=== PATIENT | male | born 1975 | race Caucasian/White ===

== ENCOUNTER 2023-02-19 06:45 | Inpatient (IN) ==
--- NOTE | 2023-02-05 13:17 | Anesthesiology Consultation ---
Date of Service February 05, 2023 Assessment & Plan (1) Encounter for pre-operative examination: COVID screening: Per assessment on 02/05: No known COVID-19 positive contacts or current COVID-19 related symptoms. Travel screen negative. At surgeon discretion if preop Covid testing being done. Chart Review Chart Review: Acceptable Risk for Surgery and Patient seen in Pre Admission Testing Teaching & Discussion Pre-Anesthesia Teaching/Discussion Notes: Instructed NPO after midnight before surgery,except medications with 15 cc of water. Medication instructions provided according to the PAT guidelines. History Surgery Operation Date: 02/19/23 07:45 Proposed Procedures p L4-L5 Decompression and Fusion, Spinal Cord Monitoring - Alexei Baumann, Height/Weight Height: 5 ft 11 in Weight: 100.6 kg Allergies Allergy/AdvReac Type Severity Reaction Status Date / Time No Known Allergies Allergy Verified 01/28/23 10:07 Medications Home Medications Medication Instructions Recorded Confirmed Last Taken No Known Home Medications 01/28/23 01/28/23 Unknown Past Medical History Medical History Chronic back pain Exercise / Class Metabolic Activity III < 4 Walking/Shop/Light housework (Decreased activity in setting of worsening back pain) Past Surgical History Surgical History History of surgery left middle finger History of tonsillectomy Past Anesthesia History No Hx of Anesthesia Complications and No Family Hx of Anesthesia Complications History of PONV No Hx of PONV and Hx of Motion Sickness (Situational) Social History Smoking Status: Light tobacco smoker Do You Dip or Chew Tobacco: Yes (1 can every 3 days- Advised) Smoking End Date: Quit regular use 3 years ago, rare current use Hx Alcohol Use: Yes Alcohol type: beer alcohol intake frequency: a few times a week Hx Substance Use: No substance use type: does not use Review of Systems Patient denies chest pain, shortness of breath, fever, chills, cough, wheezing, palpitations. Physical Exam Vital Signs VITALS BP 144/95 P 80 TEMP 98.6 SP02 97%RA RESP 16 PHYSICAL Full cervical extension range of motion. Full TMJ range of motion. TMD 3.5 finger breaths Mallampati Score 3 Dentition: upper front right broken, several missing Lungs: clear throughout to auscultation Cardiac: regular rate and rhythm, no murmurs noted Spine: normal Carotid arteries: negative bruit Extremities: no LE edema Lab Results Anesthesia Preop Results Results Anesthesia Widget: WBC 9.96 K/ul (4.8-10.8) 02/05/23 Hgb 17.3 g/dl (14.0-18.0) 02/05/23 Hct 47.8 % (42.0-52.0) 02/05/23 Plt 165 K/uL (130-400) 02/05/23 Na 135 mmol/L (136-145) L 02/05/23 K 3.8 mmol/L (3.5-5.1) 02/05/23 Cl 101 mmol/L (98-107) 02/05/23 CO2 25 mmol/L (21-32) 02/05/23 BUN 16 mg/dl (6-23) 02/05/23 Creat 1.06 mg/dl (0.6-1.4) 02/05/23 Glucose Level 102 mg/dl (70-99(Fasting)) H 02/05/23 PT 11.4 Seconds (9.0-12.0) 02/05/23 PTT 27.7 Seconds (21.0-31.0) 02/05/23 INR 1.0 (0.9-1.1) 02/05/23 Urine Color Dark Yellow 02/05/23 Urine Appearance Clear (Clear) 02/05/23 Urine pH 5.0 (4.5-7.5) 02/05/23 Urine Specific [place] 1.029 (1.000-1.030) 02/05/23 Urine Protein 1+ (Negative) H 02/05/23 Urine Glucose (UA) Negative (Negative) 02/05/23 Urine Ketones Trace (Negative) H 02/05/23 Urine Blood Negative (Negative) 02/05/23 Urine Nitrite Negative (Negative) 02/05/23 Urine Bilirubin Negative (Negative) 02/05/23 Urine Urobilinogen Negative (Negative) 02/05/23 Urine Leukocyte Esterase Trace (Negative) H 02/05/23 Urine WBC (Auto) 10-30 /hpf (0-5) H 02/05/23 Urine RBC (Auto) 0-4 /hpf (0-4) 02/05/23 Urine Hyaline Casts (Auto) 5-10 /lpf (0-5) H 02/05/23 Urine Epithelial Cells (Auto) 10-20 /lpf (0-5) H 02/05/23 Urine Bacteria (Auto) Negative (Negative) 02/05/23 Blood Type O Positive 02/05/23 Antibody Screen NEGATIVE 02/05/23 Testing Electrocardiogram Date: 02/05/23 NSR at 78bpm. Chest X-Ray Date: 02/05/23 FINDINGS: No lines and tubes are seen. The cardiomediastinal silhouette is normal. The lungs are clear. No evidence of pleural effusion or pneumothorax. IMPRESSION: No acute chest disease. COVID-19 Risk Screen Screening Information COVID-19 Screen Date: 02/05/23 Exposure 21 Days Family/Household +COVID Last 21 Days: No Exposure 10 Days Any COVID Exposure Last 10 Days: No Symptoms Last 10 Days Experienced COVID Sx Last 10 Days: No + COVID 0-90 Days COVID + in Last 0-90 Days: No
[~2023-02-19 06:45] MED LIST: ACETAMINOPHEN 500 MG TAB PO SCH; CeleBREX 200 MG CAP PO SCH; GABAPENTIN 900 MG DOSE PO SCH; LR 15ML/HR IV SCH; ceFAZolin 2000MG 2,000 MG/15 ML SYR IV SCH
--- NOTE | 2023-02-19 08:48 | History & Physical Bridge Note ---
Date of Service February 19, 2023 History & Physical Bridge Note I have examined the patient, reviewed the History & Physical and in the interval since the performance of the History & Physical I have noted the following changes of clinical significance: no changes noted
--- NOTE | 2023-02-19 08:49 | History & Physical Report ---
Date of Service February 19, 2023 Assessment & Plan (1) Neurogenic claudication due to lumbar spinal stenosis: Plan: L4-L5 decompression and fusion History of Present Illness Chief Complaint: Back and leg pain Primary Care Provider: Valerio Jacobsen This is a 47-year-old male presents with chronic persistent back and leg pain after failing course of nonoperative care is here for surgical invention. Allergies Allergy/AdvReac Type Severity Reaction Status Date / Time No Known Allergies Allergy Verified 02/19/23 07:56 Home Medications Medication Instructions Recorded Confirmed Type No Known Home Medications 01/28/23 02/19/23 History Past Med/Surg History Medical History Chronic back pain Surgical History History of surgery left middle finger History of tonsillectomy Social History Smoking Status: Light tobacco smoker Smoking End Date: Quit regular use 3 years ago, rare current use; Second Hand Exposure: Yes; Do You Dip or Chew Tobacco: Yes (1 can every 3 days- Advised); Tobacco Cessation Education Requested by Patient: No Hx Alcohol Use: Yes Alcohol type: beer Hx Substance Use: No Preferred Language: Mongolian Communication Ability: Effective Lift Truck Operator Required: No Beliefs That Will Affect Care: None Current Living Situation: Significant Other Feels Safe at Home: Yes Safety Concerns: Feels Safe At This Time Assistive Devices: Crutches and Glasses Physical Exam Physical Exam: Patient is alert and oriented Heart regular rhythm Lungs clear Results & Data Results & Data Vital Signs (Past 12 Hours) Vital Signs Temp Pulse Resp BP Pulse Ox O2 Del Method 02/19/23 07:58 36.7 C 70 18 144/95 H 94 Room Air
[2023-02-19] MEDS ORDERED: MIDAZOLAM HCL 1 MG/ML 2ML VIAL ONE (08:50)
[2023-02-19] MEDS ORDERED: fentaNYL citrate PF 100 MCG/2 ML VIAL ONE ×2 (08:50→09:52)
[2023-02-19] MEDS ORDERED: ceFAZolin 330 MG/ML 1 GM VIAL ONE (09:11)
[2023-02-19] MEDS ORDERED: BUPIVACAINE/EPINEPHRINE 0.25% 1:200,000 30 ML VIAL ONE (09:11)
[2023-02-19] MEDS ORDERED: DEXAMETHASONE SOD INJ 4 MG/ML VIAL ONE (09:35)
[2023-02-19] MEDS ORDERED: LIDOCAINE 2% 2 ML VIAL/AMP(20MG/ML) INFIL ONE (09:35)
[2023-02-19] MEDS ORDERED: PROPOFOL IV EMULSION 10 MG/ML 20 ML VIAL IV ONE (09:35)
[2023-02-19] MEDS ORDERED: ROCURONIUM BROMIDE 10 MG/ML 5 ML VIAL IV ONE (09:35)
[2023-02-19] MEDS ORDERED: FLOSEAL HEMOSTATIC MATRIX 10ML TOP ONE (09:49)
[2023-02-19] MEDS ORDERED: ONDANSETRON INJ 2 MG/ML 2 ML VIAL ONE (10:38)
[2023-02-19] MEDS ORDERED: GLYCOPYRROLATE 0.2 MG/ML VIAL ONE (10:53)
[2023-02-19] MEDS ORDERED: NEOSTIGMINE METHYLSULFATE 1 MG/ML 10ML VIAL ONE (10:53)
--- NOTE | 2023-02-19 10:59 | Operative Report ---
Post Operative Report Pre & Post Diagnosis Operation Date: 02/19/23 08:55 Pre-Op Diagnosis: Lumbar Region Spondylolisthesis Lumbar spinal stenosis with neurogenic claudication Post-Op Diagnosis: Same I identified the patient and participated in the time-out.: Yes Procedure Operation Date: 02/19/23 08:55 Actual Procedures 1. Lumbar decompression bilateral medial facetectomies and foraminotomies L3-L4 L4-5. #2 posterior spinal fusion L4-5 #3 placed posterior instrumentation L4-5 per #4 interbody fusion L4-5 per #5 placement Spira 15 x 26 mm at L4-5. #6 placement locally harvested morselized autograft in the posterior gutters. #7 placement of I factor combined with the talus in the interbody space and posterior lateral gutters. Surgeon Alexei Baumann, DO Gynecologist Ayden Michelle Estimated Blood Loss 450 Findings See Below The patient is 5 foot 11 weighing over 100 kg with a BMI in excess of 31. Patient's body was did contribute to significant technical difficulty required deepest retractors and longer instruments in order to perform his procedure. This added at least 50% increased to the operative time. Specimens none Indications This is a 47-year-old male presents with above-mentioned diagnosis after failing course of nonoperative care is here for surgical invention. Description of Procedure Patient was met with identified informed consent obtained. Patient was then taken to the operative suite underwent a patient placed in a prone position the [facility] top Gibran frame. All bony promises well-padded eyes inspected to ensure no external pressure placed upon the. This point lumbar spine was prepped and draped in a sterile fashion. Sharp dissection with the assistance of Bovie cautery was performed down to and exposing the lamina transverse processes of L4-5. From caudal cephalad fashion complete laminectomy of L4 was performed partial laminectomy of all 3 including bilateral medial facetectomies and foraminotomies addressing severe spinal stenosis. Pedicle screws were then placed in L4-L5 bilaterally with assistance of fluoroscopy and the properly sized mary placed. By way the transforaminal approach on the right complete discectomy of L4-L5 was performed endplates corrected to subcortical bleeding bone and a 15 x 26 mm Spira cage with I factor tapped in position. The rods were then compressed locked in final position bilaterally. The transverse processes of L4-L5 burred to subcortically bone. I factor amount of the test and locally harvested morselized autograft was placed in the posterior gutters. 15 round SYD drain inserted. The incision was then closed with 1 Vicryl the fascia 2-0 Vicryl subcutaneously and 4 Monocryl for final skin closure. Steri- Strips sterile dressing placed. Patient waken taken to PACU stable condition. Please note spinal cord monitoring was utilized at the procedure no changes noted. Lastly Ayden Michelle was present at the entire surgery and while the patient positioning complex portions of the surgery and final skin closure. I attest to the content of the Intraoperative Record and any orders documented therein. Any exceptions are noted below.
--- NOTE | 2023-02-19 11:25 | Fluoroscopy Report ---
FL lumbar spine 2-3V CLINICAL HISTORY: L4-5 DFI COMPARISON STUDY: None. FLUOROSCOPY TIME: 20 seconds. Ka, r: 19.60 mGy FLUOROSCOPIC IMAGES: 2 FINDINGS: Fluoroscopy was provided during L4-L5 discectomy, posterior decompression and bilateral ped icle screw fusion. Hardware is intact. IMPRESSION: Fluoroscopy provided during L4-L5 discectomy, posterior decompression and bilateral pedi kelly screw fusion. ACT 112: Negative or not required by law. Electronically signed by: Ventura Hernandes M.D. 02/19/2023 11:23 AM
[2023-02-19] MEDS ORDERED: traMADol HCL 50 MG TABLET PO PRN (12:41)
[2023-02-19] MEDS ORDERED: DO NOT ADMINISTER PNEUMOCOCCAL VACCINE PRN (12:41)
[2023-02-19] MEDS ORDERED: ALUMINUM/MAGNESIUM SUSP 30 ML UDC PO PRN (12:41)
[2023-02-19] MEDS ORDERED: oxyCODONE HCL IR 5 MG TAB (IMMEDIATE RELEASE) PO PRN (12:41)
[2023-02-19] MEDS ORDERED: HYDROmorphone INJ 0.5 MG/0.5 ML SYR IV PRN (12:41)
[2023-02-19] MEDS ORDERED: SOD PHOSPHATE/SOD BIPHOSPHATE ENEMA 132 ML BTL PR PRN (12:41)
[2023-02-19] MEDS ORDERED: METOCLOPRAMIDE HCL INJ 5 MG/ML 2 ML VIAL IV PRN (12:41)
[2023-02-19] MEDS ORDERED: ONDANSETRON INJ 2 MG/ML 2 ML VIAL IV PRN (12:41)
[2023-02-19] MEDS ORDERED: LORazepam 2 MG/1 ML VIAL IV PRN (12:41)
[2023-02-19] MEDS ORDERED: hydrOXYzine HCl 25 MG TAB PO PRN (12:41)
[2023-02-19] MEDS ORDERED: FAMOTIDINE 20 MG TAB PO PRN (12:41)
[2023-02-19] MEDS ORDERED: KETOROLAC 30 MG/ML VIAL IV PRN (12:41)
[2023-02-19] MEDS ORDERED: PROMETHAZINE HCL 12.5 MG in SODIUM CHLORIDE 0.9% 50 ML IV PRN (12:41)
[2023-02-19] MEDS ORDERED: ACETAMINOPHEN 1,000 MG/100 ML VIAL IV PRN (12:41)
[2023-02-19] MEDS ORDERED: HYDROmorphone INJ 1 MG/ML SYRINGE IV PRN (12:41)
[2023-02-19] MEDS ORDERED: diphenhydrAMINE Capsule 25 MG CAP PO PRN (12:41)
[2023-02-19] MEDS ORDERED: MAGNESIUM HYDROXIDE SUSP 30 ML UDC PO PRN (12:41)
[2023-02-19] MEDS ORDERED: ONDANSETRON 4 MG OD TAB PO PRN (12:41)
[2023-02-19] MEDS ORDERED: NALOXONE HCL 0.4 MG/1 ML VIAL/CARP IV PRN (12:41)
[2023-02-19] MEDS ORDERED: DO NOT ADMINISTER FLU VACCINE PRN (12:41)
[2023-02-19] MEDS ORDERED: bisacodyL 10 MG SUPP PR PRN (12:41)
[2023-02-19] MEDS ORDERED: LORazepam 0.5 MG TAB PO PRN (12:41)
[2023-02-19] MEDS ORDERED: ACETAMINOPHEN 500 MG TAB PO PRN (12:41)
[2023-02-19] MEDS: LACTATED RINGER'S 1,000 ML IV SCH ×2 (13:54→20:59)
--- NOTE | 2023-02-19 14:18 | Anesthesiology Progress Note ---
Date of Service February 19, 2023 Anesthesia Post Procedure Vital Signs Vital Signs: Temp Pulse Pulse Resp BP Pulse Ox O2 Del Method 02/19/23 14:14 36.7 C 85 16 106/68 94 Room Air 02/19/23 13:28 73 14 127/87 97 Room Air 02/19/23 13:00 36.1 C L 80 16 109/76 96 Nasal Cannula 02/19/23 12:00 75 16 129/89 95 Nasal Cannula 02/19/23 11:45 36.6 C 66 14 137/85 95 Nasal Cannula 02/19/23 11:35 75 12 151/90 H 95 Nasal Cannula 02/19/23 11:25 75 18 150/90 H 95 Nasal Cannula 02/19/23 11:16 36.1 C L 81 17 159/96 H 95 Nasal Cannula 02/19/23 07:58 36.7 C 70 18 144/95 H 94 Room Air O2 Flow Rate 02/19/23 14:14 02/19/23 13:28 2.5 02/19/23 13:00 2.5 02/19/23 12:00 3 02/19/23 11:45 3 02/19/23 11:35 3 02/19/23 11:25 3 02/19/23 11:16 3 02/19/23 07:58 Pain Intensity Lower Back: Pain Intensity: 1 Transfer of Care Handoff Completed per policy Notes Mental Status: alert / awake / arousable and participated in evaluation Patient Amnestic to Procedure: Yes Nausea / Vomiting: adequately controlled Pain: adequately controlled Airway Patency, RR, SpO2: stable & adequate BP & HR: stable & adequate Hydration State: stable & adequate Neuraxial Anesthesia: was administered and sensory block is resolving Anesthetic Complications: no major complications apparent and Pt Satisfied with anesthetic care
[2023-02-19] MEDS: ceFAZolin 2000MG 2,000 MG/15 ML SYR IV SCH (19:26)
[2023-02-19] MEDS: DOCUSATE SODIUM/SENNA 50/8.6MG TAB PO SCH (20:40)
[2023-02-20] MEDS: ceFAZolin 2000MG 2,000 MG/15 ML SYR IV SCH (00:06)
[2023-02-20] MEDS: POLYETHYLENE (MIRALAX) 17 GM PACK PO SCH ×4 (05:47→22:12)
[2023-02-20 05:59] LABS: Basophils # (auto) 0.03 K/uL (0-0.2); Basophils % (auto) 0.2 %; Eosinophils # (auto) 0.01 K/uL (0-0.50); Eosinophils % (auto) 0.1 %; Hematocrit (blood only) 41.4 % (42.0-52.0); Hemoglobin 15.2 g/dl (14.0-18.0); Immature Granulocytes # (auto) 0.13 K/uL (0.01-0.20); Immature Granulocytes % (auto) 0.7 %; Lymphocytes # (auto) 2.34 K/uL (1.2-3.4); Lymphocytes % (auto) 11.9 %; Mean Corpuscular Hemoglobin 33.3 pg (25.0-34.0); Mean Corpuscular Hgb Conc 36.7 g/dL (32.0-36.0); Mean Corpuscular Volume 90.6 fL (80.0-100.0); Mean Platelet Volume 10.2 fL (9.4-12.4); Monocytes % (auto) 5.6 %; Neutrophils # (auto) 16.01 K/uL (1.40-6.50); Neutrophils % (auto) 81.5 %; Platelet Count 162 K/uL (130-400); RDW Standard Deviation 42.6 fL (36.4-46.3); Red Blood Count 4.57 M/uL (4.70-6.10); White Blood Count 19.62 K/ul (4.8-10.8)
[2023-02-20 06:14] LABS: BUN Creatinine Ratio 18.3 (10-20); Calcium 9.1 mg/dl (8.6-10.3); Creatinine Clr Calc Pharmacy 98.1 ml/min; Est GFR (African American) 88.6 ml/min; Est GFR (Non-African American) 76.4 ml/min; Potassium 4.2 mmol/L (3.5-5.1)
--- NOTE | 2023-02-20 08:24 | Orthopedic Progress Note ---
Date of Service February 20, 2023 Assessment & Plan (1) Neurogenic claudication due to lumbar spinal stenosis: Plan: At this time continue physical therapy monitor his SYD output hopefully be able to discharge home tomorrow if the SYD drain decreases appropriately. Admission and Anticipated Discharge Date Admission Date: February 19, 2023 Subjective Back pain controlled leg pain improved Physical Exam Physical Exam: Patient is ambulating the halls. Is constricted testing. Is comfortable. Results & Data Vital Signs (Past 12 Hours) Vital Signs Temp Pulse Resp BP Pulse Ox O2 Del Method 02/20/23 07:44 36.7 C 77 16 148/89 H 96 Room Air 02/20/23 05:00 36.5 C 75 19 124/77 97 Room Air 02/20/23 00:17 36.2 C L 74 18 135/77 93 Room Air Queries Orthopedic Spine Obesity: Yes
[2023-02-20] MEDS: dexAMETHasone 6 MG in SYRINGE 0 ML IV SCH (08:36)
[2023-02-20] MEDS: DOCUSATE SODIUM/SENNA 50/8.6MG TAB PO SCH (20:42)
[2023-02-21] MEDS: POLYETHYLENE (MIRALAX) 17 GM PACK PO SCH ×2 (06:16→11:01)
[2023-02-21] MEDS: dexAMETHasone 6 MG in SYRINGE 0 ML IV SCH (08:10)
--- NOTE | 2023-02-21 10:22 | Discharge Summary ---
Date of Service February 21, 2023 Admission HPI Per Admitting Provider This is a 47-year-old male presents with chronic persistent back and leg pain after failing course of nonoperative care is here for surgical invention. Principal Diagnosis Lumbar spinal stenosis with neurogenic claudication Discharge Data Allergies Allergy/AdvReac Type Severity Reaction Status Date / Time No Known Allergies Allergy Verified 02/19/23 07:56 Procedures Performed Operation Date: 02/19/23 08:55 Actual Procedures p L4-L5 Decompression and Fusion with Interbody, Spinal Cord Monitoring(Not Applicable) - Alexei Baumann DO Ordered Studies 02/19/23 08:55 [place] lumbar spine 2-3V Routine Hospital Course (1) Neurogenic claudication due to lumbar spinal stenosis: Patient went lumbar decompression fusion tolerated this well was taken to orthopedic for postop labor postop day 1 is up and ambulating progress postop day #2. Pain well controlled. Excellent strength testing. SYD drain decreasing appropriately. Subsequently discharged home. Discharge orders and instructions found in chart for further review. Total Time Total Time Spent Total Time Spent (In Minutes): 20 minutes Discharge Plan Discharge Items Patient Disposition: Home - Self-Care Reason For Visit: Lumbar Region Spondylolisthesis Discharge Diagnosis: Lumbar spinal stenosis with spondylolisthesis and Activity: As commented below Non-emergency contact: Primary Care Provider Call non-emergency contact if: you have any medication questions Follow-up/Referrals: Valerio Jacobsen D.O. [Primary Care Provider] - Diet: Regular Addtl Attending Provider Instructions: ACTIVITY RECOMMENDATIONS: SELF CARE INSTRUCTIONS AFTER THORACIC/LUMBAR FUSIONS 1. You may walk to your tolerance. It is good exercise for your legs and back. Expect some back and intermittent leg aches and pains. 2. You may perform "counter-top" level activities (make a sandwich, juan with a project, etc.). 3. No bending or lifting of more than 10 pounds or back twisting of any nature (roll like a log when turning in bed). 4. You may ride in a car for 20-30 minutes at a time. No driving until after your first visit with your doctor. 5. Frequent changes of position and restricting sitting to 30 minutes at a time will help limit the amount of back spasms and stiffness you may experience. 6. You may discontinue the use of ambulatory aids (cane, crutches, etc.) once your strength and confidence allow. 7. You may labor standards director the shower and let water strike your incision when you arrive home at least once daily. Do not take a tub bath, sit in a hot tub or go into a swimming pool until after your first recheck in the office. SPECIAL CARE INSTRUCTIONS: VERY IMPORTANT TO READ AND REVIEW A. Your surgical incision has been closed with a cosmetic suture under the skin that will dissolve in about 6 weeks. In 14 days, you can use a pair of clean scissors and cut the suture that is left outside of the skin at the ends of your incision. 1. The small skin tapes can be removed 7 days after surgery if they have not fallen off by that point. 2. You may keep the wound open to air as much as possible to promote healing after post-op day number 5 unless told otherwise by your doctor. 3. If you think the wound looks like it is becoming infected (redness or worsening drainage) and/or you are experiencing fever, chill or worsening back pain and muscle spasms, contact the office so that we may evaluate you as soon as possible. B. Complications are uncommon, but please contact us if you have any signs or symptoms of: 1. wound infection (fever higher than 102.5 degrees F, redness, separation of wound, drainage, or increasing pain from the incision) 2. blood clots in legs (pain, swelling, redness and warmth in legs) 3. urinary tract infection (fever higher than 102.5 degrees F, burning upon urination or increased frequency of urination) 4. nerve problems (inability to walk on your toes or heels, numbness, loss of bowel or bladder control) 5. any other symptoms that concern you C. Please call the office at if you have any concerns or questions about your operation or recovery. D. No smoking! Smoking drastically decreases the chance of a solid fusion. E. Do not take any anti-inflammatory medications (Indocin, Advil, Motrin, Aspirin, Naprosyn, etc.) as these may inhibit the chance of a solid fusion. Ty lenol is okay to take for pain. MANAGING PAIN AFTER SPINAL SURGERY 1. Narcotic medication is intended for short-term use and will be provided for surgical pain. Surgical pain usually lasts for a period of 4-6 weeks. Narcotic medication includes Percocet, Vicodin, Darvocet, Tylenol #3 or Lortab. 2. Longer-term pain is more appropriately treated with non-narcotic medication such as Tylenol ES. 3. Muscle spasm is not appropriately treated with narcotics. Muscle relaxers such as Soma, Flexeril or Skelaxin can be used along with Tylenol ES. 4. Remember that we all live with some "aches and pains". This is not unusual or uncommon after an injury or as we get older. a. Back pain is expected and may include muscle spasms for 4 to 6 weeks after surgery. The pain should gradually improve. If the pain worsens for no apparent reason, please contact the office. b. Intermittent leg pain may also be experienced and should not be concerned about unless it worsens for no apparent reason. If so, please contact the office. 5. We will provide appropriate medication within the normal guidelines of their prescribed use. We will also be very cautious and aware of potential abuse and extended duration of patients' medication needs. a. Pain medications are for your comfort and to assist with sleep and rest so that the tissue can heal. They are not provided in order to return to normal activity and should not be used through the day. To do so or worsening pain at night can result from ongoing tissue damage and development of tolerance to the prescribed medicine. 6. Please allow 2-3 days to process refills. Prescriptions will not be mailed but must be picked up at the office. FOLLOW UP VISIT: Keep your scheduled follow-up appointment. Any questions, please call the office at . Pending Studies at Discharge: No Stand-Alone Forms: My [facility], Smoking Cessation Medications and DC Order Prescriptions: New tramadol 50 mg tablet 50 mg PO Q6H PRN (Reason: pain, moderate) Qty: 30 0RF oxycodone 5 mg tablet 5 mg PO Q6H PRN (Reason: pain) Qty: 30 0RF Discharge Orders: Discharge Order (Routine); Ordered 02/21/23 Ordered By: Alexei Baumann Admission Data Admit Date/Time: 02/19/23 11:02 Attending Provider: Alexei Baumann Admit Provider: Alexei Baumann Primary Care Provider: Valerio Jacobsen
== END 2023-02-21 13:21 | disposition home or self-care (01) | DRG 455 ==
LOC: ASU 06:45 → 3E 11:02